=== PATIENT | male | born 1940 | race Hispanic/Latino ===

== ENCOUNTER 2016-12-25 06:35 | Day surgery (SDC) | payer MEDICARE, OTHER ==
[2016-12-25] MEDS ORDERED: NACL 0.9% 500 ML 500 ML IV SCH (07:00)
[2016-12-25 07:16] LABS: Basophils % (Auto) 1.3 % (0.0-1.8); Eosinophils % (Auto) 5.1 % (0.0-4.3); Hematocrit 46.1 % (35.5-45.6); Hemoglobin 15.1 gm/dl (11.8-15.2); Mean Corpuscular HGB Conc 33 % (32-34); Mean Corpuscular Hemoglobin 29 pg (28-32); Mean Corpuscular Volume 89 fl (84-94); Platelet Count 228 K/mm3 (140-440); Red Cell Distribution Width 14.3 % (13.2-15.2); White Blood Count 7.2 K/mm3 (4.5-11.0)
[2016-12-25 07:27] LABS: INR 0.9 (0.87-1.13)
[2016-12-25 07:28] LABS: Anion Gap 17 mmol/L; Blood Urea Nitrogen 14 mg/dL (9-20); Calcium 9.4 mg/dL (8.4-10.2); Carbon Dioxide 25 mmol/L (22-30); Chloride 104.5 mmol/L (98-107); Glucose 97 mg/dL (75-100); Potassium 4.8 mmol/L (3.6-5.0); Sodium 142 mmol/L (137-145)
[2016-12-25] MEDS ORDERED: ECOTRIN PO ONE (08:00)
[2016-12-25] MEDS ORDERED: HEPARIN/NS 5000 UNIT/500ML(CATH LAB) 1,000 ML IR ONE (09:07)
[2016-12-25] MEDS ORDERED: NITROGLYCERIN SYRINGE 0 ML ONE (09:08)
[2016-12-25] MEDS: VERSED ONE ×2 (09:22→09:39)
[2016-12-25] MEDS: SUBLIMAZE ONE ×2 (09:22→09:39)
[2016-12-25] MEDS: CALAN ONE ×2 (09:23→09:45)
[2016-12-25] MEDS: XYLOCAINE 2% INFILTRATI ONE ×2 (09:23→09:44)
[2016-12-25] MEDS: HEPARIN 10,000 UNITS/10 ML ONE ×2 (09:24→09:45)
--- NOTE | 2016-12-25 12:31 | Cardiac Catherization Report ---
CARDIAC CATHETERIZATION REPORT The patient is a 76-year-old white gentleman with known coronary artery disease, had intervention of the ostial RCA on 08/17/2009 with a drug-eluting stent for 80% proximal stenosis. He has in-stent restenosis requiring Xience 4.0 mm stent on 02/22/2010. Subsequently, he was doing well. He had a stress thallium done yesterday, which showed significant ischemia with marked ST changes. Hence scheduled for cardiac catheterization. He gets symptoms of chest discomfort when he eats food and then he tries to do some exercise. Otherwise, he says he is doing well. The patient and were explained of the procedure, potential complications and alternatives of therapy available. DESCRIPTION OF PROCEDURE: The patient was brought to the catheterization laboratory in a fasting condition. The right wrist area and forearm were thoroughly cleansed with chlorhexidine solution. Sterile drapes were applied. Local anesthesia was achieved using 2% Xylocaine. Right radial artery puncture was made using 21-gauge arterial puncture needle. Subsequently, a 5-[place] standard sheath was introduced. A 5-[place]ian multipurpose catheter was used to obtain the left ventriculogram done in CONTRERAS projection using hand injection. Subsequently, right coronary angiograms were obtained using the same catheter. A 5-[place]ian TIG catheter was used to obtain the angiogram of the left coronary artery in multiple views. At the end of the procedure, catheter and sheath were removed. Good hemostasis was achieved with pressure bandage. No untoward complications were noted. Following findings were noted. HEMODYNAMICS: 1. Aortic pressure 130/65, left ventricular pressure 130/20. No gradient across the aortic valve. Estimated ejection fraction of 65%. 2. Left ventriculogram done in CONTRERAS projection using hand injection showed normal sized left ventricle with normal contractility. Mitral regurgitation could not be evaluated. 3. Right coronary artery is a large dominant vessel, arises normally from right coronary cusp. Stents were noted in the ostial and proximal part of the RCA. There is severe 95% in-stent restenosis noted in the mid part of the stent. Otherwise, rest of the vessel without significant disease. As mentioned above it is a large, dominant vessel. 4. Left coronary artery showed diffuse calcifications including left main and mid and distal LAD. Left coronary artery arises normally from left coronary cusp. There is ostial 40%-50% smooth lesion. LAD at the bifurcation in the proximal part shows eccentric 80% or more calcific lesion, which involves the diagonal branch. Mid and distal LAD, relatively small caliber vessel, curves around the apex. Circumflex artery, nondominant vessel shows mild diffuse irregularities. Collaterals, none. FINAL IMPRESSION: Severe calcific disease including ostial left main 40% to 50% and bifurcation and proximal LAD diagonal lesion. Circumflex without significant disease. Large RCA has in-stent restenosis. This is the second time in-stent restenosis with drug-eluting stents, namely [place] and Xience stents. Considering recurrent in-stent restenosis of the large dominant vessel along with the bifurcation lesion of the proximal LAD and diagonal branch, also ostial left main disease, it was felt that the patient would benefit from revascularization, preferably by bypass surgery. Same was discussed with the patient and , they are agreeable. We will arrange for bypass surgery at [facility] with Dr. Nazario. Procedure was uncomplicated. JOB# [id number] FRANSISCA/GAYATHRI BATISTA
--- NOTE | 2016-12-25 12:51 | Short Stay Summary ---
Short Stay Documentation Date of service: 12/25/16 - History H&P: obtained from office - Allergies and Medications Current Medications: Allergies Penicillins Adverse Reaction (Unverified 12/25/16 06:36) Hives Home Medications Medication Instructions Recorded Confirmed Last Taken Type Aspirin [Adult Low Dose Aspirin EC] 81 mg PO DAILY 12/25/16 12/25/16 12/24/16 History Levothyroxine [Synthroid] 100 mcg PO QAM 12/25/16 12/25/16 12/24/16 History Lisinopril [Zestril TAB] 10 mg PO QHS 12/25/16 12/25/16 12/24/16 History Metoprolol [Lopressor] 25 mg PO BID 12/25/16 12/25/16 12/24/16 History Rosuvastatin (Nf) [Crestor] 40 mg PO DAILY 12/25/16 12/25/16 12/24/16 History Active Medications Sodium Chloride (Nacl 0.9% 500 Ml) 500 mls @ 50 mls/hr IV DIRECT RONALD Stop: 12/25/16 16:59 Last Admin: 12/25/16 07:54 Dose: 50 mls/hr - Brief post op/procedure progress note Date of procedure: 12/25/16 Pre-op diagnosis: CAD Post-op diagnosis: same Procedure: C - see cath report Anesthesia: local Estimated blood loss: none Condition: stable - Disposition Condition at discharge: Stable Disposition: [id number] ANOTHER TYPE [facility]TH[facility] - Discharge Diagnoses (1) CAD (coronary artery disease) Status: Chronic Qualifiers: Coronary Disease-Associated Artery/Lesion type: C [place] vs. transplanted heart: N Associated angina: A (2) Stented coronary artery Status: Chronic (3) Abnormal stress test Status: Chronic Short Stay Discharge Plan Activity: other (per discharge instructions) Diet: low fat, low cholesterol, low salt Wound: open to air, keep clean and dry, per your surgeon's advice
[2016-12-25 15:37] VITALS: BP 130/72
== END 2016-12-25 15:35 | disposition other institution (70) ==
LOC: CATHLABREC 06:35
PROVIDERS: ATTEND Internal Medicine
DX: I25.10 Atherosclerotic heart disease of native coronary artery without angina pectoris (principal); E78.5 Hyperlipidemia, unspecified; I10 Essential (primary) hypertension; Z95.5 Presence of coronary angioplasty implant and graft; Z79.82 Long term (current) use of aspirin; Z79.899 Other long term (current) drug therapy; Z85.820 Personal history of malignant melanoma of skin; Z72.89 Other problems related to lifestyle; Z88.0 Allergy status to penicillin; Z82.49 Family history of ischemic heart disease and other diseases of the circulatory system
CPT/HCPCS: 36415; 80048; 85610; 85730; 93005; 93010; 93458; C1887; C1894; J1644; J2250; J3010; J7040; Q9967